=== PATIENT | female | born 1945 | race Caucasian/White ===

== ENCOUNTER → 2017-01-17 | Outpatient (CLI) | payer MEDICARE ==
--- NOTE | 2017-01-17 17:39 | US ---
EXAM DESCRIPTION: Liver CLINICAL HISTORY: RIGHT SIDE ABD PAIN COMPARISON: None available. FINDINGS: Aorta: Partially visualized without apparent aneurysm. IVC: Visualized portions normal. Ascites: None. Pancreas: Partially obscured by overlying bowel gas but visualized portions normal. Liver: No mass, hepatomegaly or biliary duct dilation. Physiologic flow is noted in the main portal vein. Gallbladder/Common Duct: A small amount of debris in the gallbladder without gallstone, gallbladder wall thickening, pericholecystic fluid or biliary duct dilation. The common duct measures 2 or 3 mm diameter at the ramin hepatis. Right Kidney: Not visualized. IMPRESSION: Small amount of debris in the gallbladder, but no cholelithiasis, biliary duct dilation, liver mass or additional abnormality to explain patient's symptoms. Electronically signed by: Mal Espino MD 01/17/2017 5:39 PM [employer]
--- NOTE | 2017-01-17 18:41 | MRI ---
EXAM DESCRIPTION: Brain w/oContrast CLINICAL HISTORY: BRAIN INJURY,WITHOUT LOSS OF CONSCIOUSNESS COMPARISON: CT of the brain on April 16, 2015 TECHNIQUE: Multi planar, multi sequence MRI evaluation of the brain without contrast FINDINGS: Scattered bihemispheric white matter hyperintensities, nonspecific and most likely microvascular ischemic changes. No intracranial hemorrhage, infarction, or mass lesion. Normal way-white matter differentiation Ventricles are normal in size and configuration Normal flow voids are present in the major intracranial arteries and dural venous sinuses No abnormality is seen along the course of the cranial nerves. Normal appearance of the temporal bones Orbits are grossly normal Normal aeration of paranasal sinuses and mastoid air cells IMPRESSION: 1. Nonacute MRI of the brain without contrast. 2. Microvascular ischemic changes. Electronically signed by: Sachin Disla MD 01/17/2017 6:40 PM [employer]
== END | disposition home or self-care (01) ==
LOC: MRI 09:54
PROVIDERS: ATTEND Nurse Practitioner Family
DX: S06.9X0S Unspecified intracranial injury without loss of consciousness, sequela (principal); R10.9 Unspecified abdominal pain

== ENCOUNTER → 2017-07-09 | Outpatient (CLI) | payer MEDICARE ==
--- NOTE | 2017-07-09 13:12 | CT ---
Study: CT of the Head. Indication: LEFT HEMIPARESIS Technique: Axial CT images of the head were acquired without intravenous contrast. This exam was performed according to our departmental dose-optimization program, which includes automated exposure control, adjustment of the mA and/or kV according to patient size and/or use of iterative reconstruction technique. Comparison: None. Findings: No CT evidence of acute ischemia, acute hemorrhage, mass, mass effect, midline shift, or extra-axial fluid collection. Ventricles are normal in configuration without hydrocephalus. Patchy hypoattenuation of the periventricular and subcortical white matter noted. This is nonspecific but most consistent with chronic microvascular ischemic change. Global parenchymal volume loss and intracranial atherosclerosis noted as well. Paranasal sinuses are adequately aerated. Mastoid air cells are adequately aerated. Osseous structures and soft tissues are unremarkable. Impression: 1. No CT evidence of acute intracranial abnormality. If persistent concern for acute ischemia, correlation with MRI recommended. 2. Senescent changes. Electronically signed by: Joseph Manuel MD 07/09/2017 1:12 PM CDT
== END | disposition home or self-care (01) ==
LOC: CT 12:32
PROVIDERS: ATTEND Nurse Practitioner Family
DX: G81.90 Hemiplegia, unspecified affecting unspecified side (principal)

== ENCOUNTER → 2018-11-01 | Outpatient (CLI) | payer MEDICARE ==
--- NOTE | 2018-11-01 15:28 | US ---
EXAM DESCRIPTION: Venous,Lower Extremity LT CLINICAL HISTORY: PN IN LEFT LOWER LIMB COMPARISON: None Available. TECHNIQUE: Left lower extremity venous duplex with grayscale and color Doppler images FINDINGS: Doppler evaluation of the left lower extremity deep veins was performed. Normal color flow is seen in the common femoral, superficial femoral, profunda femoral and greater saphenous veins. Normal flow is seen in the popliteal vein and veins below the knee in the calf. Normal venous compressibility and flow augmentation. IMPRESSION: Negative for evidence of deep venous thrombosis on left lower extremity venous Doppler sonogram. Electronically signed by: Bennie Son MD 11/01/2018 3:27 PM [employer]
== END ==
LOC: US 14:45
PROVIDERS: ATTEND Nurse Practitioner Family
DX: M79.605 Pain in left leg (principal)

== ENCOUNTER 2019-01-20 05:45 | Day surgery (SDC) | payer MEDICARE ==
[2019-01-20] MEDS ORDERED: TROP 1%/CYCLOPEN 1%/PHENYL 2% DROPS OPHTH ONE (05:46)
[2019-01-20] MEDS ORDERED: MIDAZOLAM INJ 2 MG/2 ML VIAL ONE ×2 (07:00→10:05)
[2019-01-20] MEDS ORDERED: PROPARACAINE 0.5% OPHTH SOL 15 ML BTTL LEFT_EYE ONE (10:05)
[2019-01-20] MEDS ORDERED: LIDOCAINE 1% 2 ML VIAL INJ ONE (10:16)
[2019-01-20] MEDS ORDERED: MOXIFLOXACIN HCL (OPHTH) 1 DROP DROPS LEFT_EYE ONE ×2 (10:16→10:27)
[2019-01-20] MEDS ORDERED: DEXAMETHASONE 0.1% OPHTH SOL 1 DROP LEFT_EYE ONE ×2 (10:16→10:28)
[2019-01-20] MEDS ORDERED: BRIMONIDINE 0.2% OPHTH DROPS LEFT_EYE ONE ×2 (10:16→10:28)
[2019-01-20] MEDS ORDERED: TOBRAMYCIN SULF 0.3 % OPHT SOL 1 DROP LEFT_EYE ONE ×2 (10:16→10:28)
== END 2019-01-20 11:01 | disposition home or self-care (01) ==
LOC: AMB 05:45
PROVIDERS: ATTEND Ophthalmology
DX: H25.012 Cortical age-related cataract, left eye (principal); I10 Essential (primary) hypertension; Z79.899 Other long term (current) drug therapy
CPT/HCPCS: 00142; 66984; J2250

== ENCOUNTER 2019-03-10 06:08 | Day surgery (SDC) | payer MEDICARE ==
[2019-03-10] MEDS ORDERED: PROPARACAINE 0.5% OPHTH SOL 15 ML BTTL ONE (12:08)
[2019-03-10] MEDS ORDERED: MOXIFLOXACIN HCL (OPHTH) 1 DROP DROPS ONE (12:08)
[2019-03-10] MEDS ORDERED: TROP 1%/CYCLOPEN 1%/PHENYL 2% DROPS ONE (12:09)
[2019-03-10] MEDS ORDERED: MIDAZOLAM INJ 2 MG/2 ML VIAL ONE ×2 (14:04→14:29)
[2019-03-10] MEDS ORDERED: PROPARACAINE 0.5% OPHTH SOL 15 ML BTTL RIGHT_EYE ONE (14:15)
[2019-03-10] MEDS ORDERED: LIDOCAINE 1% 2 ML VIAL INJ ONE (14:32)
[2019-03-10] MEDS ORDERED: DEXAMETHASONE 0.1% OPHTH SOL 1 DROP RIGHT_EYE ONE (14:38)
[2019-03-10] MEDS ORDERED: MOXIFLOXACIN HCL (OPHTH) 1 DROP DROPS RIGHT_EYE ONE (14:38)
[2019-03-10] MEDS ORDERED: TOBRAMYCIN SULF 0.3 % OPHT SOL 1 DROP RIGHT_EYE ONE (14:39)
[2019-03-10] MEDS ORDERED: BRIMONIDINE 0.2% OPHTH DROPS RIGHT_EYE ONE (14:39)
== END 2019-03-10 15:25 | disposition home or self-care (01) ==
LOC: AMB 06:08
PROVIDERS: ATTEND Ophthalmology
DX: H25.011 Cortical age-related cataract, right eye (principal)
CPT/HCPCS: 00142; 66984; J2250